=== PATIENT | male | born 1945 | race Caucasian/White ===

== ENCOUNTER 2016-06-08 01:37 | Emergency (ER) | payer MEDICARE, MEDICAID ==
[~2016-06-08] VITALS: Ht 182.9 cm; Wt 93.5 kg
[~2016-06-08 01:37] MED LIST: METF500 PO; VESI10TA PO
[2016-06-08 01:47] VITALS: BP 147/86; PULSE 73; RESP 18; TEMP 97.5; O2SAT 99
[2016-06-08] MEDS ORDERED: PANT20 PO (02:01)
[2016-06-08] MEDS ORDERED: ZYRT10CA PO (02:01)
[2016-06-08] MEDS ORDERED: GABA300C5 PO (02:01)
[2016-06-08] MEDS ORDERED: PROT40TA PO (02:01)
[2016-06-08] MEDS ORDERED: ATOR20TA15 PO (02:01)
--- NOTE | 2016-06-08 02:21 | PD ---
HPI Chief Complaint: Musculoskeletal Complaint Time Seen by Provider: 02:14 Travel History International Travel<30 days: No Contact w/Intl Traveler<30days: No Traveled to known affect area: No History of Present Illness HPI 71-year-old male fell out of bed last night following striking the ground. He struck his left hip upon the ground. He's had pain since. The patient suffers with chronic pain follows the pain management. He has been ambulatory since the fall. The onset was sudden. Pain is worse with ambulation. PFSH Past Medical History Hx Anticoagulant Therapy: No Arthritis: Yes Asthma: No Autoimmune Disease: No Blood Disorders: No Anxiety: Yes Depression: Yes Heart Rhythm Problems: No Cancer: No Cardiac Catheterization: Yes Cardiovascular Problems: Yes High Cholesterol: No Chemotherapy: No Chest Pain: Yes Congestive Heart Failure: No COPD: No Cerebrovascular Accident: No Coronary Artery Disease: Yes Diabetes: No Diminished Hearing: Yes Endocrine: No Gastrointestinal Disorders: Yes GERD: Yes Glaucoma: No Genitourinary: Yes Headaches: No Hepatitis: No Hiatal Hernia: Yes Hypertension: No Immune Disorder: No Kidney Stones: Yes Musculoskeletal: Yes (ARTHRITIS) Neurologic: Yes Psychiatric: No Respiratory: No Immunizations Current: Yes Migraines: Yes Myocardial Infarction: Yes Radiation Therapy: No Renal Failure: No Seizures: Yes (WHEN HAD MINI STROKE 2004) Sickle Cell Disease: No Sleep Apnea: No Thyroid Disease: No Ulcer: Yes PNEUMOCCOCAL Vaccine (Year): 2008 Past Surgical History Abdominal Surgery: No AICD: No Cardiac Surgery: Yes (CABG-2004) Coronary Artery Bypass Graft: Yes Ear Surgery: No Endocrine Surgery: No Eye Surgery: No Genitourinary Surgery: No Gynecologic Surgery: No Joint Replacement: No Neurologic Surgery: No Oral Surgery: No Pacemaker: No Thoracic Surgery: No Family History Family Myocardial Infarction: Yes Social History Alcohol Use: No Tobacco Use: No Substance Use: No Allergies-Medications (Allergen,Severity, Reaction): Coded Allergies: Aspirin (Verified Allergy, Severe, CAN NOT TAKE BECAUSE OF STOMACH, ) Reported Meds & Prescriptions Reported Meds & Active Scripts Active Percocet (Oxycodone-Acetaminophen) 7.5-325 mg Tab 1 Tab PO Q6H PRN Reported Protonix (Pantoprazole Sodium) 40 Mg Tab 40 Mg PO DAILY Protonix (Pantoprazole Sodium) 20 Mg Tab 20 Mg PO DAILY Zyrtec Allergy (Cetirizine HCl) 10 Mg Cap 10 Mg PO DAILY Atorvastatin (Atorvastatin Calcium) 20 Mg Tab 20 Mg PO HS Gabapentin 300 Mg Cap 300 Mg PO TID Review of Systems General / Constitutional: No: Fever, Chills Physical Exam Narrative GENERAL: 71 yo M, WNWD, NAD SKIN: Warm and dry. HEAD: Normocephalic. EYES: No scleral icterus. No injection or drainage. NECK: Supple, trachea midline. No JVD or lymphadenopathy. CARDIOVASCULAR: Regular rate and rhythm without murmurs, gallops, or rubs. RESPIRATORY: Breath sounds equal bilaterally. No accessory muscle use. GASTROINTESTINAL: Abdomen soft, non-tender, nondistended. MUSCULOSKELETAL: No cyanosis, or edema. 2+ Dp bilaterally. Minimal TTP left greater trochanter on left side. BACK: Nontender without obvious deformity. No CVA tenderness. Data Data Last Documented VS Vital Signs Date Time Temp Pulse Resp B/P Pulse Ox O2 Delivery O2 Flow Rate FiO2 06/08/16 01:47 97.5 73 18 147/86 99 VS reviewed Orders Hip, Uni(Ap&Lat) W Ap Pelvis (06/08/16 01:55) Acetamin-Hydrocod 325-5 Mg (Gibson 5-325 (06/08/16 02:45) Oxycodone-Acetamin 5-325 Mg (Percocet (06/08/16 02:45) MDM Medical Decision Making Medical Screen Exam Complete: Yes Emergency Medical Condition: Yes Medical Record Reviewed: Yes Differential Diagnosis Femur fx, pelvis fracture, contusion, sciatica, claudication Narrative Course Last 24 hours Impressions Hip and Pelvis X-Ray 06/08/16 0155 Signed Impressions: Service Date/Time: Wednesday, June 08, 2016 02:10 - CONCLUSION: 1. There is no evidence of acute fracture. Fahad Davis MD Plain films negative. Pain controlled. Pt ready for discharge. Diagnosis Primary Impression: Contusion of hip, left Referrals: DR GTZ 2 days Additional Instructions: You have a choice when it comes to health care, and we are glad that you chose [facility]. Hopefully, we have met your expectations on today's visit. You are welcome to return to [facility] at any time, as we are committed to meeting the health care needs of our community. Med/Other Pt SpecificInfo: Prescription(s) given Scripts Oxycodone-Acetaminophen (Percocet)7.5-325 mg Tab1 Tab PO Q6H PRN (PAIN SCALE 6 TO 10) #10 TAB Ref 0 Prov:Emre Cesar MD 06/08/16 Disposition: 01 DISCHARGE HOME Condition: Stable Emre Cesar MD Jun 08, 2016 02:21
--- NOTE | 2016-06-08 02:39 | RADHPO ---
EXAM DATE/TIME: 06/08/2016 02:10 [facility] COMPARISON: No previous studies available for comparison. INDICATIONS : Left hip pain after fall from bed. MEDICAL HISTORY : Rheumatoid arthritis. Osteoarthritis. Myocardial infarction. Seizures, CAD, Hyperlipidemia, Ulcer , Hiatal hernia, GERD, Kidney stones, DDD SURGICAL HISTORY : CABG. Coronary artery stent. Arthroscopy. ENCOUNTER: Initial ACUITY: 1 week PAIN SCORE: 9/10 LOCATION: Left pelvis FINDINGS: Examination of the left hip was performed with AP Pelvis. The primary and secondary trabecular patte rn of the femoral neck is intact. Degenerative changes present at the lumbosacral junction. The hip joint is of normal width without significant sclerosis or bony hypertrophy. The acetabulum is gross ly intact. CONCLUSION: 1. There is no evidence of acute fracture. Fahad Davis MD on June 08, 2016 at 2:37 Board Certified Radiologist. This report was verified electronically.
[2016-06-08] MEDS ORDERED: HYDR-3534 PO (02:41)
[2016-06-08] MEDS ORDERED: PERC7.5T13 PO (02:42)
[2016-06-08] MEDS ORDERED: ACETAMINOPHEN/HYDROcodone 325 MG/5 MG TAB PO ONE (02:45)
[2016-06-08] MEDS ORDERED: oxyCODONE/ACETAMINOPHEN 5 MG/325 MG TAB PO ONE (02:45)
== END 2016-06-08 03:18 | disposition home or self-care (01) ==
LOC: PHED 01:37
DX: S70.00XA Contusion of unspecified hip, initial encounter (principal); F41.8 Other specified anxiety disorders; F41.9 Anxiety disorder, unspecified; I25.10 Atherosclerotic heart disease of native coronary artery without angina pectoris; Z87.442 Personal history of urinary calculi; I25.2 Old myocardial infarction; Z86.73 Personal history of transient ischemic attack (TIA), and cerebral infarction without residual deficits; W06.XXXA Fall from bed, initial encounter; Y93.9 Activity, unspecified; Y99.9 Unspecified external cause status
CPT/HCPCS: 73502; 99283

== ENCOUNTER 2016-08-18 20:06 | Emergency (ER) | payer MEDICARE, MEDICAID ==
[~2016-08-18 20:06] MED LIST changes: +ATOR20TA15 PO; +GABA300C5 PO; -METF500 PO; +PANT20 PO; +PERC7.5T13 PO; +PROT40TA PO; -VESI10TA PO; +ZYRT10CA PO
[2016-08-18 20:07] VITALS: BP 132/83; PULSE 92; RESP 18; TEMP 98.3; O2SAT 96
== END 2016-08-18 23:34 | disposition left against medical advice (07) ==
LOC: NED 20:06
DX: M25.559 Pain in unspecified hip (principal); Z53.21 Procedure and treatment not carried out due to patient leaving prior to being seen by health care provider
CPT/HCPCS: 99281

== ENCOUNTER 2016-08-25 01:36 | Emergency (ER) | payer MEDICARE, MEDICAID, OTHER ==
[~2016-08-25] VITALS: Ht 182.9 cm; Wt 91.0 kg
[2016-08-25 01:47] VITALS: BP 121/86; PULSE 72; RESP 18; TEMP 98.3; O2SAT 97
[2016-08-25 01:57] VITALS: BP 121/86; PULSE 72; RESP 18; TEMP 98.3; O2SAT 97
--- NOTE | 2016-08-25 02:44 | PD ---
HPI Chief Complaint: Musculoskeletal Complaint Time Seen by Provider: 02:44 Travel History International Travel<30 days: No Contact w/Intl Traveler<30days: No Traveled to known affect area: No History of Present Illness HPI 71-year-old male presents to the emergency department by private transportation in the care of her spouse for exacerbation of low back pain with prior history of lumbar disc disease and sciatica. Patient states after doing yard work this afternoon pain is recurrent. Patient states he has been to several specialists who have indicated that he does have lumbar disc disease that he is not a surgical candidate he has also been to pain management and they have recommended different modalities of management he but he does not agree with the recommendations. Patient is planning to see his primary care provider this week but has not had opportunity to make an appointment. Patient rates his pain as 10 over 10 in intensity radiates from his left lower back/hip to his left lower leg lateral aspect. Patient denies other concerns or complaints. Patient does not report bladder or bowel dysfunction or saddle anesthesia or weakness of the lower extremity. Patient does not report any fall or injury. Patient has extensive past medical history that includes dyslipidemia and previous CABG. No report of fever or cough congestion chest pain shortness of breath abdominal pain vomiting diarrhea urinary symptoms incontinence or joint pain or swelling other than his chronic left hip pain that had increased pain today after yard work. Patient has taken no medications at home. PFSH Past Medical History Narrative Medical Arthritis anxiety depression CAD dyslipidemia prediabetes migraine TIA prior seizure CABG no tobacco use no alcohol use; nursing notes reviewed Hx Anticoagulant Therapy: No Arthritis: Yes Asthma: No Autoimmune Disease: No Blood Disorders: No Anxiety: Yes Depression: Yes Heart Rhythm Problems: No Cancer: No Cardiac Catheterization: Yes Cardiovascular Problems: Yes High Cholesterol: No Chemotherapy: No Chest Pain: Yes Congestive Heart Failure: No COPD: No Cerebrovascular Accident: No Coronary Artery Disease: Yes Diabetes: No Diminished Hearing: Yes Endocrine: No Gastrointestinal Disorders: Yes GERD: Yes Glaucoma: No Genitourinary: Yes Headaches: No Hepatitis: No Hiatal Hernia: Yes Hypertension: No Immune Disorder: No Kidney Stones: Yes Musculoskeletal: Yes (ARTHRITIS) Neurologic: Yes Psychiatric: No Respiratory: No Immunizations Current: Yes Migraines: Yes Myocardial Infarction: Yes Radiation Therapy: No Renal Failure: No Seizures: Yes (WHEN HAD MINI STROKE 2004) Sickle Cell Disease: No Sleep Apnea: No Thyroid Disease: No Ulcer: Yes Tetanus Vaccination: > 5 Years Influenza Vaccination: Yes PNEUMOCCOCAL Vaccine (Year): 2008 Past Surgical History Abdominal Surgery: No AICD: No Cardiac Surgery: Yes (CABG-2004) Coronary Artery Bypass Graft: Yes Ear Surgery: No Endocrine Surgery: No Eye Surgery: No Genitourinary Surgery: No Gynecologic Surgery: No Joint Replacement: No Neurologic Surgery: No Oral Surgery: No Pacemaker: No Thoracic Surgery: No Family History Family Myocardial Infarction: Yes Social History Alcohol Use: No Tobacco Use: No Substance Use: No Allergies-Medications (Allergen,Severity, Reaction): Coded Allergies: Aspirin (Verified Adverse Reaction, Severe, CAN NOT TAKE BECAUSE OF STOMACH, 08/25/16) Reported Meds & Prescriptions Reported Meds & Active Scripts Active Reported Atorvastatin (Atorvastatin Calcium) 20 Mg Tab 20 Mg PO HS Review of Systems Except as stated in HPI: all other systems reviewed are Neg General / Constitutional: No: Fever, Chills HENT: No: Congestion Cardiovascular: No: Chest Pain or Discomfort, Edema, Claudication Respiratory: No: Shortness of Breath Gastrointestinal: No: Abdominal Pain Genitourinary: No: Flank Pain Musculoskeletal: Positive: Myalgias, Arthralgias, Pain, No: Weakness, Cramping Skin: No Rash Neurologic: No: Weakness, Dizziness, Syncope, Focal Abnormalities, Coordination Problem, Paresthesia, Incontinence Psychiatric: No: Anxiety Endocrine: No: Heat Intolerance Hematologic/Lymphatic: No: Easy Bruising Physical Exam Narrative GENERAL: Well-developed well-nourished male in no acute distress no respiratory distress SKIN: Warm and dry. HEAD: Normocephalic. EYES: No scleral icterus. No injection or drainage. NECK: Supple, trachea midline. No JVD or lymphadenopathy. CARDIOVASCULAR: Regular rate and rhythm without murmurs, gallops, or rubs. RESPIRATORY: Breath sounds equal bilaterally. No accessory muscle use. GASTROINTESTINAL: Abdomen soft, non-tender, nondistended. MUSCULOSKELETAL: No cyanosis, or edema. Pulses 2+ to palpation bilaterally radial and dorsalis pedis. BACK: Nontender without obvious deformity. Tenderness to palpation of the left SI joint. Pain and left hip with attempted straight leg raising but no radicular pain associated with straight leg raising. No CVA tenderness. Data Data Last Documented VS Vital Signs Date Time Temp Pulse Resp B/P Pulse Ox O2 Delivery O2 Flow Rate FiO2 08/25/16 01:59 72 18 08/25/16 01:57 98.3 121/86 97 MDM Medical Decision Making Medical Screen Exam Complete: Yes Emergency Medical Condition: Yes Medical Record Reviewed: Yes Differential Diagnosis Exacerbation low back pain, radiculopathy, sciatica, sacroiliitis, peripheral vascular disease; no findings to support limb ischemia or DVT Narrative Course Patient with reported allergy to aspirin administered injection of Decadron and Norflex. Diagnosis Primary Impression: Acute exacerbation of chronic low back pain Referrals: Pain Management call for appointment Primary Care Physician call for appointment Patient Instructions: General Instructions Additional Instructions: Follow-up with your primary care provider and pain management doctor as planned Apply moist heat to hip and low back area Take pain medication as prescribed as needed Be aware that pain medication/narcotic may impair judgment, delay reaction, and , increases for fall, cause constipation May use ibuprofen as tolerated every 6-8 hours as needed for pain associated with inflammation avoid use for greater than 2 days Return to the emergency department for a concerns or change in condition Med/Other Pt SpecificInfo: Prescription(s) given Scripts Oxycodone-Acetaminophen (Percocet)5-325 mg Tab1 Tab PO Q6H PRN (PAIN GREATER THAN 7) #7 TAB Ref 0 Prov:Anabela Chappell MD 08/25/16 Disposition: 01 DISCHARGE HOME Condition: Stable Anabela Chappell MD Aug 25, 2016 02:44
[2016-08-25] MEDS ORDERED: ORPHENADRINE INJ 60 MG/2 ML AMP IM ONE (02:45)
[2016-08-25] MEDS ORDERED: DEXAMETHASONE SOD PHOS 20 MG/5 ML VIAL IM ONE (02:45)
[2016-08-25] MEDS ORDERED: PERC5TAB12 PO (02:50)
[2016-08-25 02:58] VITALS: BP 148/73; PULSE 66; RESP 18; O2SAT 98
== END 2016-08-25 03:26 | disposition home or self-care (01) ==
LOC: PHED 01:36
DX: M54.5 Low back pain (principal); G89.29 Other chronic pain; M79.662 Pain in left lower leg; E78.5 Hyperlipidemia, unspecified; H91.90 Unspecified hearing loss, unspecified ear; Z95.1 Presence of aortocoronary bypass graft; Z87.39 Personal history of other diseases of the musculoskeletal system and connective tissue; Z86.59 Personal history of other mental and behavioral disorders; Z86.79 Personal history of other diseases of the circulatory system; Z87.19 Personal history of other diseases of the digestive system; Z87.448 Personal history of other diseases of urinary system; Z86.69 Personal history of other diseases of the nervous system and sense organs
CPT/HCPCS: 96372; 99283; J1100; J2360

== ENCOUNTER 2016-12-01 23:51 | Emergency (ER) | payer MEDICARE, OTHER ==
[~2016-12-01] VITALS: Ht 182.9 cm; Wt 99.0 kg
[~2016-12-01 23:51] MED LIST changes: -GABA300C5 PO; -PANT20 PO; +PERC5TAB12 PO; -PERC7.5T13 PO; -PROT40TA PO; -ZYRT10CA PO
[2016-12-01 23:56] VITALS: BP 105/74; PULSE 71; RESP 16; TEMP 97.8; O2SAT 96
[2016-12-02 00:05] VITALS: BP 110/69; PULSE 75; RESP 20; O2SAT 98
--- NOTE | 2016-12-02 00:14 | PD ---
HPI Chief Complaint: coughing congestion Time Seen by Provider: 00:01 Travel History International Travel<30 days: No Contact w/Intl Traveler<30days: No Traveled to known affect area: No History of Present Illness HPI 71-year-old male complains of coughing congestion. Patient states that the symptoms started about 4 weeks ago. Patient was seen by personal physician and given prescription for amoxicillin without much relief of the symptoms. Patient states the cough is persistent and dry cough. Patient states that he has post nasal drip. Patient denies any fever chills. Patient denies any chest pain or shortness of breath. Patient denies abdominal pain. Patient denies any nausea vomiting diarrhea. Patient denies any fever chills. Patient also complaint of sore throat today. PFSH Past Medical History Hx Anticoagulant Therapy: No Arthritis: Yes Asthma: No Autoimmune Disease: No Blood Disorders: No Anxiety: Yes Depression: Yes Heart Rhythm Problems: No Cancer: No Cardiac Catheterization: Yes Cardiovascular Problems: Yes High Cholesterol: No Chemotherapy: No Chest Pain: Yes Congestive Heart Failure: No COPD: No Cerebrovascular Accident: No Coronary Artery Disease: Yes Diabetes: No Diminished Hearing: Yes Endocrine: No Gastrointestinal Disorders: Yes GERD: Yes Glaucoma: No Genitourinary: Yes Headaches: No Hepatitis: No Hiatal Hernia: Yes Hypertension: No Immune Disorder: No Kidney Stones: Yes Musculoskeletal: Yes (ARTHRITIS) Neurologic: Yes Psychiatric: No Respiratory: No Immunizations Current: Yes Migraines: Yes Myocardial Infarction: Yes Radiation Therapy: No Renal Failure: No Seizures: Yes (WHEN HAD MINI STROKE 2004) Sickle Cell Disease: No Sleep Apnea: No Thyroid Disease: No Ulcer: Yes PNEUMOCCOCAL Vaccine (Year): 2008 Past Surgical History Abdominal Surgery: No AICD: No Cardiac Surgery: Yes (CABG-2004) Coronary Artery Bypass Graft: Yes Ear Surgery: No Endocrine Surgery: No Eye Surgery: No Genitourinary Surgery: No Gynecologic Surgery: No Joint Replacement: No Neurologic Surgery: No Oral Surgery: No Pacemaker: No Thoracic Surgery: No Social History Alcohol Use: No Tobacco Use: No Substance Use: No Allergies-Medications (Allergen,Severity, Reaction): Coded Allergies: Aspirin (Verified Adverse Reaction, Severe, CAN NOT TAKE BECAUSE OF STOMACH, 08/25/16) Reported Meds & Prescriptions Reported Meds & Active Scripts Active Reported Atorvastatin (Atorvastatin Calcium) 20 Mg Tab 20 Mg PO HS Review of Systems General / Constitutional: No: Fever Eyes: No: Visual changes HENT: Positive: Sore Throat, Congestion, No: Headaches Cardiovascular: No: Chest Pain or Discomfort Respiratory: Positive: Cough, No: Shortness of Breath Gastrointestinal: No: Abdominal Pain Genitourinary: No: Dysuria Musculoskeletal: No: Pain Skin: No Rash Neurologic: No: Weakness Psychiatric: No: Depression Endocrine: No: Polydipsia Hematologic/Lymphatic: No: Easy Bruising Physical Exam Narrative GENERAL: Well-nourished, well-developed patient. SKIN: Focused skin assessment warm/dry. HEAD: Normocephalic. EYES: No scleral icterus. No injection or drainage. TM: Clear. Throat: Nonerythematous. Patient has tenderness on palpation of the frontal and maxillary sinus area. NECK: Supple, trachea midline. No JVD or lymphadenopathy. CARDIOVASCULAR: Regular rate and rhythm without murmurs, gallops, or rubs. RESPIRATORY: Breath sounds equal bilaterally. No accessory muscle use. GASTROINTESTINAL: Abdomen soft, non-tender, nondistended. MUSCULOSKELETAL: No cyanosis, or edema. BACK: Nontender without obvious deformity. No CVA tenderness. Data Data Last Documented VS Vital Signs Date Time Temp Pulse Resp B/P Pulse Ox O2 Delivery O2 Flow Rate FiO2 12/02/16 00:14 20 98 Room Air 12/02/16 00:05 75 110/69 12/01/16 23:56 97.8 Orders Chest, Single Ap (12/02/16 00:09) Azithromycin (Zithromax) (12/02/16 00:45) Acetamin-Codeine 120-12 Liq (Tylenol - C (12/02/16 00:45) MDM Medical Decision Making Medical Screen Exam Complete: Yes Emergency Medical Condition: Yes Differential Diagnosis Differential diagnosis including sinusitis, bronchitis, pneumonia. Narrative Course 71-year-old male with coughing congestion. Zithromax 500 mg by mouth given. Tylenol with codeine 10 cc by mouth given. Diagnosis Primary Impression: Sinusitis Qualified Code: J01.00 - Acute non-recurrent maxillary sinusitis Additional Impression: Bronchitis Patient Instructions: General Instructions Additional Instructions: Take medications as directed. Follow-up with personal physician. Return if worse. Med/Other Pt SpecificInfo: Prescription(s) given Scripts Fluticasone Nasal [place] (Flonase Nasal [place])50 Mcg/Act [id number] Mcg EACH NARE BID #1 BOTTLE Ref 0 Prov:Ender Patterson MD 12/02/16 Benzonatate (Tessalon Perles)100 Mg [id number] Mg PO TID PRN (COUGH) #21 CAP Ref 0 Prov:Ender Patterson MD 12/02/16 Azithromycin (Zithromax Z-Jemal)250 Mg [id number] Mg PO DIRECTED #1 DSPK Ref 0 500 MG (2 tabs) day 1, then 1 tab days 2-5. Prov:Ender Patterson MD 12/02/16 Disposition: 01 DISCHARGE HOME Condition: Stable Ender Patterson MD Dec 02, 2016 00:14
[2016-12-02] MEDS ORDERED: BENZ100 PO (00:38)
[2016-12-02] MEDS ORDERED: ZITHTAB PO (00:38)
[2016-12-02] MEDS ORDERED: FLUT1SPR5 EACH NARE (00:38)
--- NOTE | 2016-12-02 00:43 | RADRPT ---
EXAM DATE/TIME: 12/02/2016 00:24 [facility] COMPARISON: CHEST SINGLE AP, October 29, 2010, 8:12. INDICATIONS : Cough, congestion. MEDICAL HISTORY : Cardiovascular disease. Myocardial infarction. Coronary artery disease. SURGICAL HISTORY : CABG. Cardiac catheterization. ENCOUNTER: Initial ACUITY: 1 month PAIN SCORE: 0/10 LOCATION: Bilateral chest FINDINGS: A single view of the chest demonstrates the lungs to be symmetrically aerated without evidence of mas s, infiltrate or effusion. The cardiomediastinal contours are unremarkable. Osseous structures are intact. CONCLUSION: Normal examination. Numerous sternal wires in good position. Poor inspiratory effort. Sagar Curtis MD on December 02, 2016 at 0:42 Board Certified Radiologist. This report was verified electronically.
[2016-12-02] MEDS ORDERED: AZITHROMYCIN 250 MG TAB PO ONE (00:45)
[2016-12-02] MEDS ORDERED: ACETAMINOPHEN/CODEINE ELIX 120 MG/12 MG/5 ML CUP PO ONE (00:45)
[2016-12-02 01:09] VITALS: BP 116/64
== END 2016-12-02 01:11 | disposition home or self-care (01) ==
LOC: PHED 23:51
DX: J01.00 Acute maxillary sinusitis, unspecified (principal); J40 Bronchitis, not specified as acute or chronic; H91.90 Unspecified hearing loss, unspecified ear; I25.2 Old myocardial infarction; Z87.39 Personal history of other diseases of the musculoskeletal system and connective tissue; Z86.59 Personal history of other mental and behavioral disorders; Z86.79 Personal history of other diseases of the circulatory system; Z87.19 Personal history of other diseases of the digestive system; Z87.448 Personal history of other diseases of urinary system; Z86.69 Personal history of other diseases of the nervous system and sense organs
CPT/HCPCS: 71010; 99284

== ENCOUNTER 2016-12-09 22:13 | Emergency (ER) | payer MEDICARE, MEDICAID, OTHER ==
[~2016-12-09] VITALS: Ht 182.9 cm; Wt 85.0 kg
[~2016-12-09 22:13] MED LIST changes: +BENZ100 PO; +FLUT1SPR5 EACH NARE; -PERC5TAB12 PO; +ZITHTAB PO
[2016-12-09 22:17] VITALS: BP 171/80; PULSE 70; RESP 16; TEMP 97.8; O2SAT 97
[2016-12-09] MEDS ORDERED: TRAZ50TA12 PO (23:58)
[2016-12-09] MEDS ORDERED: PANT40TA3 PO (23:59)
[2016-12-10] MEDS ORDERED: KETOROLAC TROMETHAMINE 60 MG/2 ML (IM) VIAL IM ONE
--- NOTE | 2016-12-10 00:03 | PD ---
HPI Chief Complaint: Musculoskeletal Complaint Time Seen by Provider: 23:59 Travel History International Travel<30 days: No Contact w/Intl Traveler<30days: No Traveled to known affect area: No History of Present Illness HPI Patient comes in complaining of left lower extremity pain ongoing for 2 years. Patient reports he has been seen by their primary care doctor as well as a neurologist and has been unable to find the underlying cause. Patient was at different ER last night and prescribed trazodone. Patient states he took half the dose fell asleep for little while. However patient continues to pain in his left lower extremity and no one has been able tell him what the cause is. Pain is worse with walking. Denies anything making it better. Denies any radiation of the pain. Describes pain as a burning sensation in the anterior aspect of his left lower extremity distally to the knee. Patient denies any change in the pain is just wanting to know what is causing it and treated for it. PFSH Past Medical History Hx Anticoagulant Therapy: No Arthritis: Yes Asthma: No Autoimmune Disease: No Blood Disorders: No Anxiety: Yes Depression: Yes Heart Rhythm Problems: No Cancer: No Cardiac Catheterization: Yes Cardiovascular Problems: Yes (CABG, CAD) High Cholesterol: No Chemotherapy: No Chest Pain: Yes Congestive Heart Failure: No COPD: No Cerebrovascular Accident: No Coronary Artery Disease: Yes Diabetes: No Diminished Hearing: Yes Endocrine: No Gastrointestinal Disorders: Yes GERD: Yes Glaucoma: No Genitourinary: Yes Headaches: No Hepatitis: No Hiatal Hernia: Yes Heparin Induced Thrombocytopen: No Hypertension: No Immune Disorder: No Implanted Vascular Access Dvce: No Kidney Stones: Yes Musculoskeletal: Yes (ARTHRITIS) Neurologic: Yes Psychiatric: No Respiratory: No Immunizations Current: Yes Migraines: Yes Myocardial Infarction: Yes Radiation Therapy: No Renal Failure: No Seizures: Yes (WHEN HAD MINI STROKE 2004) Sickle Cell Disease: No Sleep Apnea: No Thyroid Disease: No Ulcer: Yes PNEUMOCCOCAL Vaccine (Year): 2008 Past Surgical History Abdominal Surgery: No AICD: No Cardiac Surgery: Yes (CABG-2004) Coronary Artery Bypass Graft: Yes Ear Surgery: No Endocrine Surgery: No Eye Surgery: No Genitourinary Surgery: No Gynecologic Surgery: No Joint Replacement: No Neurologic Surgery: No Oral Surgery: No Pacemaker: No Thoracic Surgery: No Social History Alcohol Use: No Tobacco Use: No Substance Use: No Allergies-Medications (Allergen,Severity, Reaction): Coded Allergies: Aspirin (Verified Adverse Reaction, Severe, CAN NOT TAKE BECAUSE OF STOMACH, 12/09/16) Reported Meds & Prescriptions Reported Meds & Active Scripts Active Indomethacin 25 Mg Cap 25 Mg PO Q8HR PRN Take with food, milk, or antacids to decrease stomach adverse effects. Flonase Nasal [place] (Fluticasone Nasal [place]) 50 Mcg/Act [place] 100 Mcg EACH NARE BID Tessalon Perles (Benzonatate) 100 Mg Cap 200 Mg PO TID PRN Zithromax Z-Jemal (Azithromycin) 250 Mg Dspk 250 Mg PO DIRECTED 500 MG (2 tabs) day 1, then 1 tab days 2-5. Reported Pantoprazole (Pantoprazole Sodium) 40 Mg Tab 40 Mg PO DAILY Trazodone (Trazodone HCl) 50 Mg Tab 50 Mg PO HS Atorvastatin (Atorvastatin Calcium) 20 Mg Tab 20 Mg PO HS Review of Systems Except as stated in HPI: all other systems reviewed are Neg Physical Exam Narrative GENERAL: Well-developed, overly nourished, in no acute distress, and non-ill appearing. SKIN: Focused skin assessment warm and dry. HEAD: Atraumatic. Normocephalic. EYES: Pupils equal and round. EOMI. No scleral icterus. No injection or drainage. ENT: No nasal bleeding or discharge. Mucous membranes pink and moist. NECK: Trachea midline. Supple. No nuclear rigidity. CARDIOVASCULAR: Dorsal pulses 2+, intact, and equal bilaterally. Capillary refill less than2 second. RESPIRATORY: No accessory muscle use. No respiratory distress. MUSCULOSKELETAL: No obvious deformities. No clubbing. No cyanosis. Trace edema bilateral lower extremities. Full range of motion. NEUROLOGICAL: Awake and alert. No obvious cranial nerve deficits. Motor grossly within normal limits. Normal speech. PSYCHIATRIC: Appropriate mood and affect; insight and judgment normal. Data Data Last Documented VS Vital Signs Date Time Temp Pulse Resp B/P Pulse Ox O2 Delivery O2 Flow Rate FiO2 12/09/16 22:17 97.8 70 16 171/80 97 Orders Ketorolac Inj (Toradol Inj) (12/10/16 00:00) MDM Medical Decision Making Medical Screen Exam Complete: Yes Emergency Medical Condition: No Differential Diagnosis Acute on chronic pain, chronic pain, gout, pseudogout, menjivar splints, other Narrative Course Patient in no obvious distress upon re-evaluation. Patient was asked if they wanted to speak to my attending, which the patient did not wish to do at this time. Any questions/concerns in reference to patient diagnosis/condition discussed and clarified prior to patient's discharge. Reinforced sheer importance of close follow up with patient's primary physician or primary care clinic. Instructed patient to return to ED immediately, if symptoms return/ worsen. Pt showed understanding of above instructions. Further instructions and recommendations were detailed in discharge paperwork. Pt left without difficulty out of ED at discharge. Diagnosis Primary Impression: Left leg pain Referrals: Orthopedist Vascular Surgeon Patient Instructions: General Instructions, Leg Pain (ED) Additional Instructions: Follow-up with your primary care physician, orthopedic, and/or vascular surgeon this week for reevaluation. Take all medication as prescribed. Return to the emergency department if symptoms get worse. Med/Other Pt SpecificInfo: Prescription(s) given Scripts Indomethacin 25 Mg Cap25 Mg PO Q8HR PRN (PAIN SCALE 1 TO 10) #10 CAP Ref 0 Take with food, milk, or antacids to decrease stomach adverse effects. Prov:Simon Parker MD 12/10/16 Disposition: 01 DISCHARGE HOME Condition: Stable Landon Arias Dec 10, 2016 00:03
[2016-12-10] MEDS ORDERED: INDO25CA PO (00:05)
== END 2016-12-10 00:56 | disposition home or self-care (01) ==
LOC: NEPD 22:13
DX: M79.605 Pain in left leg (principal)
CPT/HCPCS: 96372; 99284; J1885

== ENCOUNTER 2016-12-22 21:07 | Emergency (ER) | payer MEDICARE, OTHER ==
[~2016-12-22] VITALS: Ht 182.9 cm; Wt 87.9 kg
[~2016-12-22 21:07] MED LIST changes: +INDO25CA PO; +PANT40TA3 PO; +TRAZ50TA12 PO
[2016-12-22 21:41] VITALS: BP 152/83; PULSE 83; RESP 18; TEMP 98.4; O2SAT 97
--- NOTE | 2016-12-22 23:14 | PD ---
HPI Chief Complaint: ENT Complaint Time Seen by Provider: 23:08 Travel History International Travel<30 days: No Contact w/Intl Traveler<30days: No Traveled to known affect area: No History of Present Illness HPI 71-year-old male presents to the ER today with 1 year history of postnasal drip , left maxillary sinus discomfort, coughing at times which she states is on and off and he has seen several physicians for this issue. He was not able to see an ENT doctor because of insurance issues. He has tried multiple medications including [id number] medications without significant relief. He states that his is here being evaluated and so he checked himself into be evaluated for this issue. He denies any recent fevers, vomiting, headaches, or any other symptoms. Modifying Factors: None Associated Signs & Symptoms: Sinus pressure, postnasal drip, coughing intermittently Risk Factors: Sinus issues for 1 year PFSH Past Medical History Hx Anticoagulant Therapy: No Arthritis: Yes Asthma: No Autoimmune Disease: No Blood Disorders: No Anxiety: Yes Depression: Yes Heart Rhythm Problems: No Cancer: No Cardiac Catheterization: Yes Cardiovascular Problems: Yes (CABG, CAD) High Cholesterol: No Chemotherapy: No Chest Pain: Yes Congestive Heart Failure: No COPD: No Cerebrovascular Accident: No Coronary Artery Disease: Yes Diabetes: No Diminished Hearing: Yes Endocrine: No Gastrointestinal Disorders: Yes GERD: Yes Glaucoma: No Genitourinary: Yes Headaches: No Hepatitis: No Hiatal Hernia: Yes Heparin Induced Thrombocytopen: No Hypertension: No Immune Disorder: No Implanted Vascular Access Dvce: No Kidney Stones: Yes Musculoskeletal: Yes (ARTHRITIS) Neurologic: Yes Psychiatric: No Respiratory: No Immunizations Current: Yes Migraines: Yes Myocardial Infarction: Yes Radiation Therapy: No Renal Failure: No Seizures: Yes (WHEN HAD MINI STROKE 2004) Sickle Cell Disease: No Sleep Apnea: No Thyroid Disease: No Ulcer: Yes Tetanus Vaccination: Unknown Influenza Vaccination: No PNEUMOCCOCAL Vaccine (Year): 2008 Past Surgical History Abdominal Surgery: No AICD: No Cardiac Surgery: Yes (CABG-2004) Coronary Artery Bypass Graft: Yes Ear Surgery: No Endocrine Surgery: No Eye Surgery: No Genitourinary Surgery: No Gynecologic Surgery: No Joint Replacement: No Neurologic Surgery: No Oral Surgery: No Pacemaker: No Thoracic Surgery: No Family History Family Myocardial Infarction: Yes Social History Alcohol Use: No Tobacco Use: No Substance Use: No Allergies-Medications (Allergen,Severity, Reaction): Coded Allergies: Aspirin (Verified Adverse Reaction, Severe, CAN NOT TAKE BECAUSE OF STOMACH, 12/09/16) Reported Meds & Prescriptions Reported Meds & Active Scripts Active Indomethacin 25 Mg Cap 25 Mg PO Q8HR PRN Take with food, milk, or antacids to decrease stomach adverse effects. Review of Systems Except as stated in HPI: all other systems reviewed are Neg Physical Exam Narrative GENERAL: Well-nourished, well-developed elderly white male patient in no acute distress. Awake and oriented 3. SKIN: Focused skin assessment warm/dry. HEAD: Normocephalic. EYES: No scleral icterus. No injection or drainage. ENT: Mucosa pink and moist. No erythema or exudates. No uvular edema. No uvular , palatal, or tonsillar deviation. Airway patent. Nasal turbinates appear normal without nasal blood, purulent drainage or septal hematoma. NECK: Supple, trachea midline. No JVD or lymphadenopathy. CARDIOVASCULAR: Regular rate and rhythm without murmurs, gallops, or rubs. RESPIRATORY: Breath sounds equal bilaterally. No accessory muscle use. GASTROINTESTINAL: Abdomen soft, non-tender, nondistended. MUSCULOSKELETAL: No cyanosis, or edema. BACK: Nontender without obvious deformity. No CVA tenderness. Data Data Last Documented VS Vital Signs Date Time Temp Pulse Resp B/P Pulse Ox O2 Delivery O2 Flow Rate FiO2 12/22/16 21:41 98.4 83 18 152/83 97 MDM Medical Decision Making Medical Screen Exam Complete: Yes Emergency Medical Condition: Yes Medical Record Reviewed: Yes Differential Diagnosis Chronic sinusitis Narrative Course It does not appear that the patient is having any active issues, has been having symptoms for a year previously diagnosed. At this point, I do not see any additional things that would do. Patient is not sure what medication he takes for it and I would refer him back to his primary care physician regarding this issue. Return for new issues fevers, and as needed. The plan has been discussed with the patient and he states understanding. Diagnosis Primary Impression: Sinusitis Disposition: 01 DISCHARGE HOME Condition: Stable Hector Holly MD Dec 22, 2016 23:14
[2016-12-22 23:27] VITALS: BP 138/85
== END 2016-12-22 23:28 | disposition home or self-care (01) ==
LOC: PHED 21:07
DX: J32.9 Chronic sinusitis, unspecified (principal)
CPT/HCPCS: 99282